=== PATIENT | male | born 1930 | race Caucasian/White ===

== ENCOUNTER 2016-10-08 14:58 | Emergency (ER) | payer MEDICARE, BC ==
--- NOTE | ~2016-10-08 | CR127 ---
[facility]. [facility] A Service of [facility] RADIOLOGY TEXT RESULTS PATIENT: RENAE WREN LOCATION: SED : [birth year] UNIT #: [id number] AGE: [address]: Mariana Leon SEX: M ORDER DR: [id number] [place] [id number] E MR#: [id number] Acc #: [id number] NAME: RENAE WREN. : 1930 SEX: M STUDY DATE/TIME: 10/08/2016 14:53 UNIT: SED ROOM: STUDY DESCRIPTION: CR Foot Complete Min 3 View Rt Attending Physician: Mariana Leon Pa-C Referring Physician: Mariana Leon Pa-C Ordering Physician: Mariana Leon Pa-C Primary Care Physician: Kerry Haider M.D. MEDICAL IMAGING REPORT This report is preliminary unless electronic signature is present. EXAM Right foot 3 views HISTORY Great toe pain and swelling for 5 days. No injury. FINDINGS 3 views of the foot demonstrate moderately severe degenerative arthritis at the first MTP joint. Mild arterial calcifications. Satisfactory bone alignment. No fracture or dislocation. IMPRESSION 1. No acute findings. 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 2. Mild arterial calcifications. Dictated by... Christopher Mccoy M.D. THIS IS AN ELECTRONICALLY VERIFIED REPORT Christopher Mccoy M.D. at 10/08/2016 11:10 PM DFL/pcl TD: 10/08/2016 18:13 JOB #: [id number] MEDICAL IMAGING REPORT Page 1 of 1
[~2016-10-08 14:58] MED LIST: CARVEDILOL25 MG PO; CLARITIN5 MG/5 ML; COUMADIN3 MG PO; DIAZEPAM PO; GLUCOSAMINE500 M2; K-DUR10 MEQ; LASIX; LIPITOR PO; LISINOPRIL; NITROGLYGERIN0.4 MG; NYSTATIN1 EAC1; PRILOSEC
== END 2016-10-08 15:51 | disposition home or self-care (01) ==
LOC: SED 14:58
DX: S93.601A Unspecified sprain of right foot, initial encounter (principal); I10 Essential (primary) hypertension; Z88.0 Allergy status to penicillin; Z79.899 Other long term (current) drug therapy; I25.10 Atherosclerotic heart disease of native coronary artery without angina pectoris; X50.1XXA Overexertion from prolonged static or awkward postures, initial encounter; Y93.01 Activity, walking, marching and hiking
CPT/HCPCS: 29540; 73630; 99283